=== PATIENT | male | born 2000 | race Caucasian/White ===

== ENCOUNTER 2022-09-23 11:48 | Emergency (ER) | payer SELFPAY ==
[~2022-09-23] VITALS: Ht 167.6 cm; Wt 65.8 kg
[2022-09-23 11:48] VITALS: BP 118/58
--- NOTE | 2022-09-23 12:26 | ER.PDOC ---
General Chief Complaint: Requesting Medical Care Stated Complaint: HEADACHE,WEAKNESS,SOB Time seen by MD: 12:19 Source: patient Exam Limitations: no limitations History of Present Illness Initial Comments 22 yo M, not vaccinated against influenza nor Covid-19, has URI symptoms for 1.5 days +/-. Additionally had about a week of URI symptoms in the week leading up to Marian, not evaluated at that time. Has been using some robitussin or similar at home. Timing/Duration: gradual Severity: moderate Associated Symptoms: cough, mild SOB Prior symptoms/Treatment: Similar symptoms previous Constitutional: malaise Respiratory: see HPI Cardiovascular: no symptoms reported Gastrointestinal: no symptoms reported Genitourinary: no symptoms reported Musculoskeletal: no symptoms reported Skin: no symptoms reported Psychiatric/Neurological: no symptoms reported Endocrine: no symptoms reported All Other Systems: Reviewed and Negative Past Medical History Medical History: no pertinent history Family History Significant Family History: no pertinent family hx Social History Smoking: other (vapes) Reviewed Nursing Reviewed: Vital Signs, Abn. Noted (just very slightly tachy (101) at times), Nursing Assessment Physical Exam General Appearance: alert, no distress Eye: eyes nml inspection Ear: ear nml Throat: airway nml Neck: supple Respiratory: no resp.distress (upper airway cough at times, lungs themselves are clear), breath sounds nml Abdomen: non-tender (grossly benign) CVS: reg rate & rhythm Skin: color nml, no rash Extremities: non-tender NEURO/PSYCH: motor nml, sensation nml, mood/affect nml Results/Orders Results/Orders Orders - NATA GASCA MD Influenza A&B (09/23/22 11:51) Covid19 Antigen Julieth Elena (09/23/22 11:51) Vital Signs Date Time Temp Pulse Resp B/P (MAP) Pulse Ox O2 Delivery O2 Flow Rate FiO2 09/23/22 11:48 99.4 107 20 09/23/22 11:48 99.4 107 20 96 09/23/22 11:48 99.4 107 20 118/58 (78) 96 Room Air* 0 21 Laboratory Tests Test 09/23/22 00:00 Influenza Type A Antigen NEGATIVE (NEG) Influenza Type B Antigen NEGATIVE (NEG) SARS-CoV-2 Antigen (Rapid) NEGATIVE (NEGATIVE) Progress Progress Seems a straightforward URI. I am not minded to x-ray given the clear lung exam. We will treat symptomatically. ER DEPART Departure Time of Disposition: 12:47 Disposition: 01 HOME / SELF CARE / HOMELESS Impression: Primary Impression: Upper respiratory infection Condition: Stable Patient Instructions: Upper Respiratory Infection, Adult Referrals: PCP,UNKNOWN (PCP) PRIMARY CARE PROVIDER Comments mucinex DM, naproxen Duration or Time Spent with Pa: 10 min NATA GASCA MD Sep 23, 2022 12:26
== END 2022-09-23 13:03 | disposition home or self-care (01) ==
LOC: ER 11:48
DX: J06.9 Acute upper respiratory infection, unspecified (principal); Z20.822 Contact with and (suspected) exposure to COVID-19
CPT/HCPCS: 87426; 87804; 99283

== ENCOUNTER 2024-03-27 16:07 | Emergency (ER) | payer SELFPAY ==
[~2024-03-27] VITALS: Ht 165.1 cm; Wt 72.6 kg
[2024-03-27 16:12] VITALS: BP 122/74; PULSE 90; RESP 20; TEMP 98.1; O2SAT 96
[2024-03-27 16:33] LABS: BASOPHIL % 0.2 % (0.0-0.2); EOSINOPHIL # 0.1 10^3/uL (0.0-0.2); EOSINOPHIL % 1.3 % (0.0-5.0); HEMOGLOBIN 15.2 g/dL (13.9-16.3); IG % 0.2 % (0.00-0.50); LYMPHOCYTES # 2.39 10^3/uL1 (1.0-4.8); LYMPHOCYTES % 28.3 % (24.0-44.0); MEAN CORP HGB 29.9 pg (26-34); MEAN CORP HGB CONCENTRATION 33.8 g/dL (33-36.5); MEAN CORP VOLUME 88.6 fL (78-100); MONOCYTES # 0.7 10^3/uL (0.3-0.8); NEUTROPHIL # 5.2 10^3/uL (1.8-7.7); RED BLOOD CELL 5.08 10^6/uL (4.50-5.90); WHITE BLOOD CELL 8.5 10^3/uL (4.5-11.0)
[2024-03-27] MEDS ORDERED: TORADOL ONE (16:36)
[2024-03-27] MEDS ORDERED: PHENERGAN ONE (16:36)
[2024-03-27] MEDS ORDERED: NS 1000ML 1,000 ML ONE (16:36)
[2024-03-27] MEDS: TORADOL IV STA (16:42)
[2024-03-27] MEDS: PHENERGAN IV STA (16:42)
[2024-03-27] MEDS: NS 1000ML 1,000 ML STA (16:42)
[2024-03-27 16:44] LABS: ALBUMIN(ML) 4.6 g/dL (3.4-5.0); ALBUMIN/GLOBULIN RATIO 1.352; ANION GAP 12.6; CARBON DIOXIDE 29.1 mmol/L (20.0-32); CREATININE SERUM 1.1 mg/dL (0.59-1.40); POTASSIUM 3.7 mmol/L (3.6-5.2)
[2024-03-27 16:45] LABS: PROTHROMBIN PROTIME 10.5 SEC (9.7-11.6)
[2024-03-27 17:03] LABS: BILIRUBIN,URINE NEGATIVE (NEGATIVE); LEUKOCYTE ESTERASE ,URINE NEGATIVE (NEGATIVE); NITRATE,URINE NEGATIVE (NEGATIVE); PH,URINE 7.5 (4.5-8.0); UROBILINOGEN,URINE 0.2 E.U./dL (0.2)
[2024-03-27 17:05] LABS: APPEARANCE,URINE CLEAR; UA COLOR YELLOW
[2024-03-27 17:33] VITALS: BP 118/64; PULSE 71; RESP 18; O2SAT 97
[2024-03-27 18:12] VITALS: BP 107/82; PULSE 73; RESP 20; O2SAT 97
[2024-03-27] MEDS ORDERED: PROM25TA10 PO (18:13)
[2024-03-27] MEDS ORDERED: KETO10TA PO (18:13)
== END 2024-03-27 18:15 | disposition home or self-care (01) ==
LOC: ER 16:07
DX: K52.9 Noninfective gastroenteritis and colitis, unspecified (principal); E73.9 Lactose intolerance, unspecified; F17.290 Nicotine dependence, other tobacco product, uncomplicated; Z90.89 Acquired absence of other organs
CPT/HCPCS: 99285; 74177; 96374; 96361; 96375; 81003; 80053; 85025; 36415; 83690; 85610; 85730; J7030; J1885; J2550; Q9965